=== PATIENT | male | born 1955 | race Caucasian/White ===

== ENCOUNTER 2020-08-23 19:18 | Inpatient (IN) | payer MEDICARE, OTHER ==
[~2020-08-23] VITALS: Ht 243.8 cm; Wt 76.0 kg
--- NOTE | ~2020-08-23 | EMS ---
[facility] [address] [place] [address] EMS Patient Care Report Name: DALY WRIGHT Room: [address] IN .R.#: [id number] Admission: 08/23/20 Attend Phys: Maya Bee MD Discharge: Date of : 55 Report #: [id number] THIS REPORT FOR: //name// Report Transmitted: 08/26/2020 15:42 EMS Care Summary SARAH WOODS Incident [id number] @ 08/23/2020 18:19 Incident Location [address] [place] [address] Patient DALY WRIGHT Male, 64 Years 1955 Patient Address [address] [facility] [place] [address] Patient History Amputee,Hypertension (HTN),Type 1 diabetes mellitus,Cerebral infarction, unspecified, Patient Allergies No known allergies, Chief Complaint Shortness of Breath Disposition Transported No Lights/[place] Dispatch Reason Breathing Problem Transported To [facility] Narrative [facility] 319 respond to [address] for a respiratory. 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 IFD states pt is fine. He doesnt appear to be short of breath. He is talking with us just fine. His family wants him to go to the hospital but he's not sure if he wants to go. He has been having congestion for the past 2 days. His o2 sat was 92% and his HR was 120. Pt's states he has [address] [address] EMS Patient Care Report Name: DALY WRIGHT Room: [address] IN M.R.#: [id number] Admission: 08/23/20 Attend Phys: Maya Bee MD Discharge: Date of : 55 Report #: [id number] also been stressed. His dog this morning. Son states that he was shaking short of breath and not able to steer his motorized wheel chair. Pt states he hasn't felt like he's had a fever. He's not really feeling short of breath. He would like to go to [facility]. I explain that [facility] is on high volume, they are very busy. Is there another hospital that he would like to go to? Pt and family decide on [facility]. He doesn't have a pacemaker. He has a history of an arrythmia. No other complaints. Found 64yo male sitting in motorized wheel chair in living room. Airway is open. Breathing is non labored. Skin is warm, pink, and dry. Pt is A&Ox4. Pt has audible wet lung sounds and a productive cough. HEENT unremarkable. Equal chest rise and fall. Breath sounds clear in right upper and lower lobe. Rhonchi in left upper and lower lobe. ABD unremarkable. Pelvis intact. Pt has left sided weakness. Pt has bilateral AKAs. Once in ambulance pt became tachypneic without distress. Improved by being placed on 02 at 3lpm. No other visible abnornmalities found at this time. Assessed pt and spoke with pt and family. With help from IFD transferred pt from motorized wheel chair to stair chair with brandi. Secured pt to stair chair with 3 straps. IFD carried pt down [address] to stretcher. Transferred pt from stair chair to stretcher by brandi. Secured pt to stretcher with 5 straps and 2 rails. Obtained v/s, pulse ox reading, 4 and 12 lead ekg. Placed pt on o2 3lpm by nc. Started 20g iv ns lock in right ac. Checked d-stick. Continued to monitor pt and called report during transport. Transferred pt from stretcher to bed by draw sheet. Turned over pt care to [facility] RM 3 medical staff. Initial Vitals @18:43SpO2: 89, @18:44SpO2: 87, @18:51SpO2: 95, @19:02SpO2: 100, @18:47 @18:44P: 69,R: 36,BP: 159/91, @19:02P: 88,R: 24,BP: 129/90, @19:13P: 132,R: 24,BP: 146/89, @18:44GCS: 15, @19:02GCS: 15, @19:13GCS: 15, @18:28 @18:51Glucose: 195, Assessments @18:28MENTAL:SKIN:HEENT:LUNG SOUNDS:ABDOMEN:PELVIS//GI:EXTREMITIES:PULSE:NEURO: Impression Acute Respiratory Distress (Dyspnea) [place] [address] EMS Patient Care Report Name: WRIGHTDALY MCKEON Lorenzo Room: [address] IN M..#: [id number] Admission: 08/23/20 Attend Phys: Maya Bee MD Discharge: Date of : 55 Report #: [id number] Procedures @18:48Other - Medication - 3.000 Liters per Minute (l/min [fluid]) - Nasal CannulaResponse: Improved@18:50 cc () Site: Antecubital-RightResponse: UnchangedSucceeded@18:4712-Lead ECGResponse: UnchangedSucceeded Timeline 18:19,Call Received 18:19,Dispatch Notified 18:19,Psap Call 18:19,Dispatched 18:19,En Route 18:26,On Scene 18:28,At Patient 18:28,BP: / M,PULSE: ,RR: R,SPO2: Ox,ETCO2: ,BG: ,PAIN: ,GCS: , 18:43,BP: / M,PULSE: ,RR: R,SPO2: 89 Ox,ETCO2: ,BG: ,PAIN: ,GCS: , 18:44,BP: / M,PULSE: ,RR: R,SPO2: 87 Ox,ETCO2: ,BG: ,PAIN: ,GCS: , 18:44,BP: 159/91 M,PULSE: 69,RR: 36 R,SPO2: Ox,ETCO2: ,BG: ,PAIN: ,GCS: , 18:44,BP: / M,PULSE: ,RR: R,SPO2: Ox,ETCO2: ,BG: ,PAIN: ,GCS: 15, 18:47,12-Lead ECG,Response: UnchangedSucceeded, 18:47,BP: / M,PULSE: ,RR: R,SPO2: Ox,ETCO2: ,BG: ,PAIN: ,GCS: , 18:48,Other - Medication - 3.000 Liters per Minute (l/min [fluid]) - Nasal Cannula,Response: Improved 18:50, cc Site: Antecubital-Right,Response: UnchangedSucceeded, 18:51,BP: / M,PULSE: ,RR: R,SPO2: 95 Ox,ETCO2: ,BG: ,PAIN: ,GCS: , 18:51,BP: / M,PULSE: ,RR: R,SPO2: Ox,ETCO2: ,B,PAIN: ,GCS: , 18:52,Depart Scene 19:02,BP: / M,PULSE: ,RR: R,SPO2: 100 Ox,ETCO2: ,BG: ,PAIN: ,GCS: , 19:02,BP: 129/90 M,PULSE: 88,RR: 24 R,SPO2: Ox,ETCO2: ,BG: ,PAIN: ,GCS: , 19:02,BP: / M,PULSE: ,RR: R,SPO2: Ox,ETCO2: ,BG: ,PAIN: ,GCS: 15, 19:12,At Destination 19:13,BP: 146/89 M,PULSE: 132,RR: 24 R,SPO2: Ox,ETCO2: ,BG: ,PAIN: ,GCS: , 19:13,BP: / M,PULSE: ,RR: R,SPO2: Ox,ETCO2: ,BG: ,PAIN: ,GCS: 15, 19:28,Call Closed Disclaimer v1.1 Copyright 2020 [employer] This EMS Care Summary contains data elements from the applicable legal record (which may be displayed differently). It is designed to provide pertinent information for the following purposes: continuity of care, clinical quality, and state data reporting. The complete legal record is available to ED staff and administrators of the receiving hospital in [employer]'s Patient Tracker. All data is provided "as is."
[~2020-08-23 19:18] MED LIST: CYMBALTA30 MG PO; GLUCOPHAGE XR750 MG PO; LIORESAL 10 MG10 MG PO; LISINOPRIL2.5 MG PO; NEURONTIN 300M300 M2 PO; PRADAXA150 MG PO; ZOCOR20 MG PO; ZOFRAN ODT4 MG PO
[2020-08-23 19:19] VITALS: BP 134/86
[2020-08-23] MEDS ORDERED: AMBIEN5 MG PO (19:57)
[2020-08-23] MEDS ORDERED: NYSTATIN15 G2 TOP (19:57)
[2020-08-23 20:13] LABS: HEMATOCRIT 34.9 % (42.0-52.0); HEMOGLOBIN 11.6 gm/dL (14.0-18.0); MCH 26.7 pg (26.0-34.0); MCHC 33.2 g/dL (28.0-37.0); MCV 80.7 fL (80.0-100.0); MPV 8.3 fl. (7.2-11.1); NUCLEATED RBCS 0 /100WBC; PLATELET COUNT* 206 thou/uL (150-400); RBC 4.33 mil/uL (4.50-6.00); RDW-CV 16.6 % (10.5-14.5); WBC 9.7 thou/uL (4.0-11.0)
[2020-08-23 20:14] LABS: BE -6.5 mmol/L (-2 to +3); PCO2 27.3 mmHg (35.0-45.0); PO2 72.4 mmHg (75.0-100.0); pH 7.408 (7.340-7.450)
[2020-08-23 20:17] LABS: CALCIUM 8.2 mg/dL (8.5-10.1); CREATININE 1.5 mg/dL (0.6-1.3); POTASSIUM 4.8 mmol/L (3.5-5.1)
[2020-08-23 20:21] LABS: ALBUMIN 2.8 g/dL (3.4-5.0); MAGNESIUM 1.5 mg/dL (1.8-2.4); TOTAL BILIRUBIN 0.9 mg/dL (<0.1-1.0); TOTAL PROTEIN 7.7 g/dL (6.4-8.2)
[2020-08-23 20:22] LABS: APTT 53.4 Seconds (25.0-31.3); INR 1.3; PROTIME 13.4 Seconds (9.20-11.50)
[2020-08-23 20:37] LABS: ABSOLUTE LYMPHOCYTES 0.3 thou/uL (0.8-5.3); ABSOLUTE MONOCYTES 0.7 thou/uL (0.0-1.2); ABSOLUTE NEUTROPHILS 8.7 thou/uL (1.6-8.1); PLATELET ESTIMATE ADEQUATE
[2020-08-23 23:54] VITALS: BP 136/67
[2020-08-24 00:42] VITALS: BP 118/66
[2020-08-24 02:29] LABS: HEMATOCRIT 36.4 % (42.0-52.0); HEMOGLOBIN 11.8 gm/dL (14.0-18.0); MCH 26.5 pg (26.0-34.0); MCHC 32.5 g/dL (28.0-37.0); MCV 81.4 fL (80.0-100.0); MPV 8.4 fl. (7.2-11.1); RBC 4.47 mil/uL (4.50-6.00); RDW-CV 16.4 % (10.5-14.5); WBC 7.4 thou/uL (4.0-11.0)
[2020-08-24 02:50] LABS: CALCIUM 8.3 mg/dL (8.5-10.1); CREATININE 1.5 mg/dL (0.6-1.3); POTASSIUM 4.5 mmol/L (3.5-5.1)
[2020-08-24 05:07] VITALS: BP 128/86
[2020-08-24 08:00] VITALS: BP 127/76
[2020-08-24 12:00] VITALS: BP 127/83
--- NOTE | 2020-08-24 13:53 | EKG ---
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 : 1955 Requested By: Mita Talley Order Number: [id number] MD: Jose Miguel Carter Measurements Intervals [place] Rate: 147 P: VT: QRS: -28 QRSD: 113 T: 122 QT: 279 QTc: 437 Interpretive Statements Atrial fibrillation Anterior infarct, old Repolarization abnormality, prob rate related Minimal ST elevation, inferior leads Compared to ECG 01/26/2017 16:51:39 Early repolarization now present ST (T wave) deviation now present Intraventricular conduction delay no longer present Myocardial infarct finding still present Electronically Signed On 08-24-2020 13:52:47 DUPLIGRAPH OPERATOR by Jose Miguel Carter [email or web address] <ELECTRONICALLY SIGNED> By: Yuan Carter MD, [facility] 08/24/20 1352 23 23 Yuan Carter MD, [facility] /EPI
--- NOTE | 2020-08-24 14:25 | NUR ---
CM SPOKE TO THE PT VIA THE HOSPITAL ROOOM PHONE TO DISCUSS CM ASSESSMENT THE PT IS COVID 19 POSITIVE AND CURRENTLY UNDER ENHANCED PRECAUTIONS. PT A&O. PT USES A POWERCHAIR FOR MOBILITY AND A ESTEBAN LIFT FOR TRANSFERS. PT RESIDES AT HOME WITH SPOUSE AND SON AND THEY ASSIST PT WITH TRANSFERS AND ADL'S, AND ALSO DO ALL COOKING AND PULPWOOD CONTRACTOR. PT USES A CPAP AT REST. PT HAS PAST HX OF HH AND SNF 'MANY YEARS AGO'. PT CURRENTLY ON 1.5L O2, BUT DID NOT USES HOME OXYGEN PRIOR TO ADMIT. CM WILL REMAIN AVAILABLE TO ASSIST AND FOLLOW NEEDED.
[2020-08-24 14:49] LABS: % SATURATION 6 % (20-39); IRON 13 ug/dL (50-175)
[2020-08-24 16:00] VITALS: BP 147/72
[2020-08-24 20:00] VITALS: BP 117/72
[2020-08-24 22:16] LABS: URINE BILIRUBIN NEGATIVE (Negative); URINE BLOOD TRACE (Negative); URINE COLOR YELLOW; URINE GLUCOSE-RANDOM 2+ (Negative); URINE KETONES TRACE (Negative); URINE LEUKOCYTES NEGATIVE (Negative); URINE NITRITE NEGATIVE (Negative); URINE PROTEIN 2+ (Negative); URINE SPECIFIC GRAVITY >= 1.030 (1.005-1.030); URINE UROBILINOGEN 0.2 E.U./dl (0.2-1.0)
[2020-08-24 22:18] LABS: URINE CLARITY HAZY
[2020-08-24 22:36] LABS: BACTERIA None Seen /HPF (None Seen); CASTS None Seen /LPF (None Seen); CRYSTALS None Seen /LPF (None Seen); SQUAMOUS 0-3 Few /LPF (0-3); URINE RBC 0-2 Rare /HPF (0-2); URINE WBC None Seen /HPF (0-5)
[2020-08-25] VITALS (10 sets, daily range): BP systolic 109–161; BP diastolic 64–93
[2020-08-25 01:24] LABS: CALCIUM 8.6 mg/dL (8.5-10.1); CREATININE 1.6 mg/dL (0.6-1.3); MAGNESIUM 1.8 mg/dL (1.8-2.4); POTASSIUM 4.5 mmol/L (3.5-5.1)
--- NOTE | 2020-08-25 12:42 | CON ---
[address] [address] CONSULTATION Name: DALY WRIGHT Lorenzo Room: [address] IN M.R.#: [id number] Admission: 08/23/20 Attend Phys: Maya Bee MD Discharge: Date of : 55 Report #: [id number] THIS REPORT FOR: cc: Tushar Valencia James V. DO ~ Yuan Carter MD [facility] CARDIOLOGY CONSULTATION HISTORY OF PRESENT ILLNESS: I was asked by Dr. Bee to see this 64-year-old white male in cardiology consultation for evaluation and treatment of COVID-19 pneumonia that is of acute onset. He has a mild elevation of troponin, chronic atrial fibrillation, probable mild congestive heart failure, essential hypertension, hypercholesterolemia, left bundle branch block, chronic kidney disease and COUMADIN ALLERGY WITH SO CALLED COUMADIN NECROSIS, this resulted in bilateral lower extremity amputations. His mild CHF is based on his chest x-ray, plus a BNP of 2888. This man presented following an episode of chills and malaise and shortness of breath. He presented yesterday. He was found to have on his chest x-ray, cardiomegaly, although it was not done in the ER and was on AP film. There were bilateral diffuse hazy interstitial pulmonary opacities that were felt to possibly represent congestive heart failure with primary pulmonary edema, although diffuse interstitial pneumonitis was also a consideration. His COVID test was positive and he is felt to have COVID pneumonia. He does have history of chronic atrial fibrillation. He has not been on anticoagulation because of his anticoagulation with Coumadin experience resulting in his lower extremity amputations. I believe he has been on Pradaxa however. I believe he has been taking 150 mg b.i.d. PAST MEDICAL HISTORY: Essentially as described above. Additionally, he has a history of CVA x 2. HOME MEDICATIONS: Have included baclofen 20 mg at bedtime, Pradaxa 150 mg b.i.d., Cymbalta 30 mg daily, gabapentin 300 mg b.i.d., lisinopril 5 mg daily, metformin 850 mg b.i.d. apparently for non-insulin dependent diabetes mellitus, nystatin powder p.r.n., simvastatin 20 mg daily at bedtime and Ambien 5 mg at bedtime p.r.n. REVIEW OF SYSTEMS: Unremarkable except as per the history of present illness and past medical history. SOCIAL HISTORY: Does not smoke, drink or use illegal drugs. FAMILY HISTORY: Unremarkable. PHYSICAL EXAMINATION: GENERAL: He presents as well-developed, well-nourished [place] [address] CONSULTATION Name: DALY WRIGHT Room: [address] IN ..#: [id number] Admission: 08/23/20 Attend Phys: Maya Bee MD Discharge: Date of : 55 Report #: [id number] lower extremity amputee. He had a pulse of 105. It was irregularly irregular. Blood pressure is 147/71, respirations 18 and regular, temperature is 98.5. HEENT: His head was atraumatic. Eyes clear. NECK: Supple. There is no jugular venous distention or hepatojugular reflux. Thyroid is not enlarged. There is no adenopathy. SKIN: Warm and dry. Mucous membranes are moist. LUNGS: Clear to auscultation and percussion. HEART: Revealed normal first and second heart sound. There is no S4. There is no S3. There are no murmurs, rubs, thrills, heaves or gallops. PMI is nondisplaced. The rhythm is irregularly irregular and rate is approximately 100. ABDOMEN: Soft, flat and nontender. No palpable masses, no organomegaly. EXTREMITIES: Revealed bilateral lower extremity amputations. IMPRESSION: 1. COVID-19 pneumonia with acute respiratory failure. 2. Mildly elevated troponin. Note, his troponins were initially 0.11 and 0.18 and 0.13, then 0.17. This is in the context of a creatinine of 1.5 and mild chronic kidney disease. 3. Igz-utelvpj-shnjundkh diabetes mellitus. 4. Chronic atrial fibrillation. 5. Mild congestive heart failure of uncertain type. 6. Essential hypertension. 7. Hypercholesterolemia. 8. Left bundle-branch block. 9. Chronic kidney disease. 10. COUMADIN ALLERGY WITH COUMADIN NECROSIS. Note that his EKG when he was admitted showed left bundle branch block and there was atrial fibrillation with a rapid ventricular response. RECOMMENDATION: I would check an echo, control his heart rate with diltiazem and anticoagulate him with Pradaxa. Thank you very much for asking me to see the patient. If there are any questions, please feel free to contact me. <ELECTRONICALLY SIGNED> By: Yuan Carter MD, FACC 08/25/20 1242 1325 [id number]. Jose Miguel Carter MD, FACC /nt
[2020-08-25 12:56] LABS: ABSOLUTE BASOPHILS 0.1 thou/uL (0.0-0.2); ABSOLUTE LYMPHOCYTES 0.3 thou/uL (0.8-5.3); ABSOLUTE MONOCYTES 0.7 thou/uL (0.0-1.2); ABSOLUTE NEUTROPHILS 10.4 thou/uL (1.6-8.1); BASOPHILS 0.6 %; BE -2.8 mmol/L (-2 to +3); HEMATOCRIT 36.4 % (42.0-52.0); HEMOGLOBIN 11.8 gm/dL (14.0-18.0); LYMPHOCYTES 2.6 %; MCH 26.6 pg (26.0-34.0); MCHC 32.3 g/dL (28.0-37.0); MCV 82.1 fL (80.0-100.0); MONOCYTES 6.5 %; MPV 8.2 fl. (7.2-11.1); NUCLEATED RBCS 0 /100WBC; PO2 VENOUS 26.1 mmHg (35.0-45.0); POLYS 90.3 %; RBC 4.44 mil/uL (4.50-6.00); RDW-CV 16.3 % (10.5-14.5); WBC 11.5 thou/uL (4.0-11.0)
[2020-08-25 13:11] LABS: PLATELET COUNT* 278 thou/uL (150-400)
[2020-08-25 13:15] LABS: ALBUMIN 3.1 g/dL (3.4-5.0); CALCIUM 8.9 mg/dL (8.5-10.1); CREATININE 1.9 mg/dL (0.6-1.3); POTASSIUM 3.8 mmol/L (3.5-5.1); TOTAL BILIRUBIN 0.9 mg/dL (<0.1-1.0); TOTAL PROTEIN 8.2 g/dL (6.4-8.2)
[2020-08-25 17:14] LABS: BE 0.6 mmol/L (-2 to +3); PCO2 VENOUS 36.8 mmHg (41.0-51.0)
--- NOTE | 2020-08-25 19:13 | NUR ---
ASSESSMENT DOCUMANTED. MEDS GIVEN PER E-OCT. NO REPORTS OF PAIN. PT FOUND TO BE TACHYPNEIC WITH HR RUNNING UP TO 180'S, DRS NOTIFIED, ORDERS RECIEVED. PT STARTED ON CARDIZEM DRIP AND PLACED ON BIPAP. PT VOIDING PER E-OCT. ISOLATION MAINTAINED. FAMILY UPDATED ON PLAN OF CARE. PT RESTING COMFORTABLY AT END OF SHIFT.
[2020-08-25 23:06] LABS: IgA 457 mg/dL (61-437); IgG 1695 mg/dL (603-1613); IgM 64 mg/dL (20-172)
[2020-08-26] VITALS: BP 116/70
[2020-08-26 04:45] VITALS: BP 120/72
[2020-08-26 08:00] VITALS: BP 168/70
--- NOTE | 2020-08-26 10:03 | EKG ---
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: [place] : 1955 Requested By: Mita Talley Order Number: [id number] Juwan MD: Jose Iraheta Measurements Intervals [place] Rate: 98 P: ME: QRS: -39 QRSD: 121 T: 112 QT: 344 QTc: 440 Interpretive Statements Atrial fibrillation Left bundle branch block Baseline wander in lead(s) V5 Compared to ECG 08/23/2020 19:24:46 Left bundle-branch block persists Early repolarization no longer present Electronically Signed On 08-26-2020 10:03:04 DOG POUND ATTENDANT by Jose Iraheta [email or web address] <ELECTRONICALLY SIGNED> By: Jose Iraheta MD, FACC 08/26/20 1003 2235 2235 Jose Iraheta MD, FAC /EPI
--- NOTE | 2020-08-26 10:03 | EKG ---
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[place] : 1955 Requested By: Mita Talley Order Number: [id number] Juwan MD: Jose Iraheta Measurements Intervals [place] Rate: 111 P: [place]: QRS: -42 QRSD: 123 T: 121 QT: 343 QTc: 466 Interpretive Statements Atrial fibrillation Left bundle branch block Compared to ECG 08/23/2020 22:35:05 No significant changes Electronically Signed On 08-26-2020 10:03:12 BEATER MACHINE OPERATOR by Jose Iraheta [email or web address] <ELECTRONICALLY SIGNED> By: Jose Iraheta MD, [facility] 08/26/20 1003 34 34 Jose Iraheta MD, [facility] /EPI
[2020-08-26 11:05] LABS: HEMATOCRIT 31.5 % (42.0-52.0); HEMOGLOBIN 10.3 gm/dL (14.0-18.0); MCH 26.2 pg (26.0-34.0); MCHC 32.7 g/dL (28.0-37.0); MCV 80.2 fL (80.0-100.0); MPV 7.8 fl. (7.2-11.1); NUCLEATED RBCS 0 /100WBC; PLATELET COUNT* 281 thou/uL (150-400); RBC 3.94 mil/uL (4.50-6.00); RDW-CV 16.8 % (10.5-14.5); WBC 9.8 thou/uL (4.0-11.0)
[2020-08-26 11:21] LABS: ALBUMIN 2.6 g/dL (3.4-5.0); CALCIUM 7.8 mg/dL (8.5-10.1); CREATININE 1.7 mg/dL (0.6-1.3); MAGNESIUM 2.1 mg/dL (1.8-2.4); POTASSIUM 3.8 mmol/L (3.5-5.1); TOTAL BILIRUBIN 1.1 mg/dL (<0.1-1.0); TOTAL PROTEIN 7.5 g/dL (6.4-8.2)
[2020-08-26 11:30] LABS: ABSOLUTE LYMPHOCYTES 0.9 thou/uL (0.8-5.3); ABSOLUTE MONOCYTES 0.5 thou/uL (0.0-1.2); ABSOLUTE NEUTROPHILS 8.4 thou/uL (1.6-8.1); PLATELET ESTIMATE ADEQUATE
[2020-08-26 12:00] VITALS: BP 165/73
--- NOTE | 2020-08-26 13:44 | 2DMMODE ---
[place] [address] 2 D/M-MODE ECHOCARDIOGRAM Name: WRIGHTDALY Room: [address] IN .R.#: [id number] Admission: 08/23/20 Attend Phys: Maya Bee MD Discharge: Date of : 55 Date of Service: 08/26/20 1344 Report #: [id number] THIS REPORT FOR: cc: Tushar Valencia James V. DO Holkins,Jose Brady MD [facility] ~ APPROVED REPORT Study performed: 08/26/2020 10:53:30 EXAM: Comprehensive 2D, Doppler, and color-flow Echocardiogram Patient Location: In-Patient Room #: [facility] Status: routine BSA: 1.50 HR: 85 bpm BP: 120/72 mmHg Rhythm: Atrial Fibrillation Other Information Study Quality: Good Indications Atrial Fibrillation 2D Dimensions IVSd: 17.23 (7-11mm) LVOT Diam: 21.81 (18-24mm) LVDd: 38.85 mm PWd: 13.61 (7-11mm) Ascending Ao: 35.99 (22-36mm) LVDs: 25.01 (25-40mm) Aortic Root: 36.50 mm Aortic Valve AoV Peak Wan.: 2.06 m/s AO Peak Gr.: 16.97 mmHg LVOT Max P.12 mmHg AO Mean Gr.: 10.17 mmHg LVOT Mean P.16 mmHg LVOT Max V: 1.01 m/s AO V2 VTI: 37.40 cm LVOT Mean V: 0.68 m/s KYLIE (VTI): 1.40 cm2 LVOT V1 VTI: 14.06 cm Mitral Valve MV Mean Gr.: 6.75 [place] [address] 2 D/M-MODE ECHOCARDIOGRAM Name: DALY WRIGHT Room: [address] IN .R.#: [id number] Admission: 08/23/20 Attend Phys: Maya Bee MD Discharge: Date of : 55 Date of Service: 08/26/20 1344 Report #: [id number] PV Peak Wan.: 1.25 m/s PV Peak Gr.: 6.22 mmHg Left Ventricle The left ventricle is normal size. There is normal LV segmental wall motion. Moderate concentric left ventricular hypertrophy. Left ventricular systolic function is normal. The left ventricular ejection fraction is within the normal range. LVEF is 65%. This study is not technically sufficient to allow evaluation of the LV diastolic function due to atrial fibrillation. Right Ventricle The right ventricle is normal size. The right ventricular systolic function is normal. Atria The left atrium size is normal. The right atrium size is normal. Aortic Valve Moderate aortic valve sclerosis. Mild aortic regurgitation. Mild aortic stenosis. Mitral Valve Moderate mitral annular calcification. There is no mitral valve regurgitation noted. No evidence of mitral valve stenosis. Tricuspid Valve The tricuspid valve is normal in structure. Unable to assess PA pressure. Trace tricuspid regurgitation. Pulmonic Valve The pulmonary valve is normal in structure. There is no pulmonic valvular regurgitation. Great Vessels The aortic root is normal in size. IVC is normal in size and collapses >50% with inspiration. Pericardium There is no pericardial effusion. <Conclusion> The left ventricle is normal size. Moderate concentric left ventricular hypertrophy. Left ventricular systolic function is normal. The left ventricular ejection [place] [address] 2 D/M-MODE ECHOCARDIOGRAM Name: DALY WRIGHT Room: [address] IN [facility]#: [id number] Admission: 08/23/20 Attend Phys: Maya Bee MD Discharge: Date of : 55 Date of Service: 08/26/20 1344 Report #: [id number]. LVEF is 65%. This study is not technically sufficient to allow evaluation of the LV diastolic function due to atrial fibrillation. The right ventricle is normal size. The left atrium size is normal. Moderate aortic valve sclerosis. Mild aortic regurgitation. Mild aortic stenosis. Moderate mitral annular calcification. There is no mitral valve regurgitation noted. No evidence of mitral valve stenosis. The tricuspid valve is normal in structure. IVC is normal in size and collapses >50% with inspiration. There is no pericardial effusion. There is normal LV segmental wall motion. <ELECTRONICALLY SIGNED> By: Jose Iraheta MD, FACC 08/26/20 1344 1344 1344 Jose Iraheta MD, FACC /INF
--- NOTE | 2020-08-26 15:00 | NUR ---
SOME BETTER THIS AFTERNOON. ABLE TO BE OFF BIPAP AND ON 6L/HFC O2. CHANGING TO PO CARDIZEM AND DIG. REMAINS ON IV LASIX AND REMDESIVIR. CM WILL FOLLOW.
[2020-08-26 16:00] VITALS: BP 138/82
--- NOTE | 2020-08-26 19:41 | NUR ---
ASSUMED CARE OF PATIENT THIS AM AT 0730. PATIENT IS ALERT AND ORIENTED X 4. HE DENIES PAIN AND DISCOMFORT. TELE SHOWS A FIB. DR IN TO ROUND AND PATIENT IS TO START PO CARDIZEM. PATIENT REPOSITIONED Q 2 HR. MEDICATIONS GIVEN PER ORDER. PATIENT WAS ON BIPAP THIS AM. O2 CHANGED TO NC 5 LITERS WHILE AWAKE. PATIENT HAS BEEN INCONTINENT OF URINE TODAY. ASSISTED WITH ADLS THROUGHOUT THE DAY. NO FALLS OR INJURY.
[2020-08-26 20:30] VITALS: BP 130/68
[2020-08-27 00:35] VITALS: BP 113/65
--- NOTE | 2020-08-27 05:09 | NUR ---
PT LYING IN BED AT TIME OF ASSESSMENT, HE IS AO X4 WITH SHORT,BLUNT ANSWERS. PT VSS. PT CARDIZEM GTT WAS DISCONTINUED DUE TO BP AND HR BEING WNL AND HAS STARTED PO MEDS. HE IS CURRENTLY STILL AFIB IN 70-80s WITH NO COMPLAINT OF PAIN OR SOA. HE IS CURRENTLY ON 5.5 L NC AND BIPAP AT HS. BLOOD SUGAR THIS PM WAS 409 AND INSULING GIVEN TO CORRECT THIS PER OCT. PT RECEIVED LASIX AT 2100 AND APPROX 1400 mL URINE OUTPUT. PT TURNED Q 2HR, WCLR,WCTM
[2020-08-27 05:25] LABS: PCO2 32.8 mmHg (35.0-45.0); PO2 100.4 mmHg (75.0-100.0); pH 7.497 (7.340-7.450)
[2020-08-27 05:53] VITALS: BP 134/77
[2020-08-27 06:46] LABS: HEMATOCRIT 35.5 % (42.0-52.0); HEMOGLOBIN 11.6 gm/dL (14.0-18.0); MCH 26.3 pg (26.0-34.0); MCHC 32.6 g/dL (28.0-37.0); MCV 80.7 fL (80.0-100.0); MPV 8.3 fl. (7.2-11.1); RBC 4.39 mil/uL (4.50-6.00); WBC 5.2 thou/uL (4.0-11.0)
[2020-08-27 07:06] LABS: ALBUMIN 2.5 g/dL (3.4-5.0); CALCIUM 8.5 mg/dL (8.5-10.1); CREATININE 1.7 mg/dL (0.6-1.3); MAGNESIUM 2.3 mg/dL (1.8-2.4); POTASSIUM 3.4 mmol/L (3.5-5.1); TOTAL BILIRUBIN 1.1 mg/dL (<0.1-1.0); TOTAL PROTEIN 7.7 g/dL (6.4-8.2)
[2020-08-27 08:30] VITALS: BP 160/81
[2020-08-27 12:28] VITALS: BP 163/63
--- NOTE | 2020-08-27 16:00 | NUR ---
REMAINS ON 2L/O2/NC. NO O2 AT HOME. CXR TODAY SHOWS NO CHANGE. IV SOLUMEDROL DECREASED TO BID. REAMINS ON IV CEFEPIME,REMDESIVIR. STARTED ON PO DIG. CM WILL FOLLOW.
[2020-08-27 17:47] VITALS: BP 141/78
--- NOTE | 2020-08-27 18:53 | NUR ---
ASSESSMENT DOCUMENTED. MEDS GIVEN PER E-MAR. IV PATENT. NO REPORTS OF PAIN THIS SHIFT. IV PATENT. O2 DECREASED TO 2L NC THIS SHIFT. ISOLATION MAINTAINED.
[2020-08-27 20:00] VITALS: BP 158/68
[2020-08-28] VITALS: BP 126/61
--- NOTE | 2020-08-28 03:53 | NUR ---
PT AO X4 LYING IN BED AT TIME OF ASSESSMENT. HE IS CURRENTLY ON 4L NC SATTING 100 PERCENT, TITRATED DOWN TO 2L AND SATS HAVE MAINTAINED GREATER THAN 90 PERCENT. PT STILL HAS A NONPRODUCTIVE COUGH THAT IS INFREQUENT, LUNGS ARE CTA. VSS.PT IS EXCITED AT THE PROSPECT OF GOING HOME TODAY. TM
[2020-08-28 04:00] VITALS: BP 129/81
[2020-08-28 04:30] VITALS: BP 148/65
[2020-08-28 06:07] LABS: CALCIUM 8.3 mg/dL (8.5-10.1); CREATININE 1.3 mg/dL (0.6-1.3)
[2020-08-28 07:40] VITALS: BP 160/69
[2020-08-28 12:00] VITALS: BP 135/85
[2020-08-28] MEDS ORDERED: PNV 29-1 TABLE1 EACH PO (12:00)
[2020-08-28] MEDS ORDERED: CEFDINIR300 MG PO (12:00)
[2020-08-28] MEDS ORDERED: PREDNISONE 10 M10 MG PO (12:00)
[2020-08-28] MEDS ORDERED: TOPROL XL50 MG PO (12:00)
[2020-08-28 15:09] LABS: GLOBULIN TOTAL 4.2 g/dL (2.2-3.9); M-SPIKE Not Observed g/dL (Not Observed)
--- NOTE | 2020-08-28 17:53 | NUR ---
DISCUSSED IN PRIME TIME ROUNDS THIS AM. POSSIBILITY OF DISCHARGE TOMORROW TO HOME. RESTING AND EXERCISE SATS ORDERED. DOESN'T USE O2 AT HOME. CURRENTLY ON 2L/NC.
--- NOTE | 2020-08-28 19:51 | NUR ---
ASSESSMENT DOCUMENTED. MEDS GIVEN PER E-MAR. IV PATENT. NO REPORTS OF PAIN THIS SHIFT. PT ON 2L NC PT DESATS TO LOW 80% ON ROOM AIR WHEN NAPPING. FALL PRECAUTIONS IN PLACE. ISOLATION MAINTAINED.
[2020-08-28 21:00] VITALS: BP 150/84
[2020-08-29] VITALS (7 sets, daily range): BP systolic 109–155; BP diastolic 56–81
--- NOTE | 2020-08-29 04:34 | NUR ---
PT AO X4 LYING IN BED AT TIME OF ASSESSMENT, PT WAS TO BE DISCHARGED YESTERDAY BUT SATS KEPT FALLING INTO THE 80s WHEN PT WOULD FALL ASLEEP. PT HAD HOME CPAP BROUGHT IN WITH OVERNIGH OXIMETRY TO BE DONE TO EVALUATE HIM FOR HOME OXYGEN USE UPON DISCHARGE. PT LUNGS ARE CLEAR WITH NONPRODUCTIVE COUGH. HE IS AFEBRILE AND READY TO GO HOME. VSS, BLOOD SUGAR REQUIRING SOME COVERAGE FOR STEROID USE. WCTM
--- NOTE | 2020-08-29 17:00 | NUR ---
ATTEMPTED TO CONTACT EARLIER TO SEE WHAT PT.HAS USED IN THE PAST. LEFT VM. CALLED PT.ON CELL. HE DID NOT ANSWER PHONE. HE IS TO DISCHARGE TODAY WITH HOME HEALTH. FAXED REFERRAL AND DISCHARGE ORDERS/MEDS TO [facility] [phone]. PER NURSING SON IS COMING TO PICK PT.UP IN HIS WC VAN.PT.DID NOT REQUIRE O2. 02 SAT WAS 96% AT REST. PT.DOES NOT AMBULATE.
--- NOTE | 2020-08-29 19:57 | NUR ---
ASSESSMENT DOCUMENTED. MEDS GIVEN PER E-MAR. IV PATENT. DC ORDERS RECIEVED. IV REMOVED. PT LEFT VIA WC WITH FAMILY
--- NOTE | 2020-08-30 19:27 | NUR ---
NOTIFIED BY [facility] THAT PT.S INS. WAS OON FOR THEIR HH. OUR FACE SHEET SAYS MEDICARE. THEY SAID WHEN THEY RAN IT, IT WAS A BLUE CROSS PRODUCT. CM CALLED [facility]. SPOKE WITH JAYDA. SHE LOOKED PT.UP THROUGH HIS MEDICARE NUMBER. SHE SAID IT APPEARED HE HAS AETNA. THEY CANNOT SEE HIM OVER THE WEEKEND DUE TO THEIR COVID TEAM DOES NOT WORK ON WEEKENDS. SHE SAID IF I COULD FIND OUT POLICY NAME AND NUMBER AND FAX WITH REFERRAL THEY COULD RUN INS. OVER WEEKEND. CM CALLED SON, RACHEL. HE SAID PT.WAS SLEEPING BUT HE WOULD HAVE HIM CALL CM WHEN HE WOKE UP. GAVE HIM PHONE NUMBER. HE SAID DAD WAS DOING GOOD. O2 SATS ARE GOOD. HE SAID WHEN DISCHARGED THEY DID NOT GET HIS NEW PRESCRIPTIONS HE WAS SUPPOSED TO HAVE. HE SAID THEY GOT AHOLD OF TODAY AND THEY WERE CALLED IN TO HIS PHARMACY TODAY.
== END 2020-08-29 17:30 | disposition home health service (06) | DRG 871 ==
LOC: M.ERS 19:18 → M.ORTHSURG 22:28 → M.TBA-ER 22:28 → M.ORTHSURG 08-24 00:19
PROVIDERS: Internal Medicine; Personal Emergency Response Attendant; Registered Nurse; ADMIT Family Medicine; ATTEND Family Medicine
PROC: 5A09357 Assistance with Respiratory Ventilation, Less than 24 Consecutive Hours, Continuous Positive Airway Pressure (ICD-10-PCS; principal; 2020-08-25)
PROC: XW033E5 Introduction of Remdesivir Anti-infective into Peripheral Vein, Percutaneous Approach, New Technology Group 5 (ICD-10-PCS; principal; 2020-08-25)
PROC: 5A0935A Assistance with Respiratory Ventilation, Less than 24 Consecutive Hours, High Flow/Velocity Cannula (ICD-10-PCS; 2020-08-26)
PROC: 05HD33Z Insertion of Infusion Device into Right Cephalic Vein, Percutaneous Approach (ICD-10-PCS; 2020-08-26)
PROC: 5A09357 Assistance with Respiratory Ventilation, Less than 24 Consecutive Hours, Continuous Positive Airway Pressure (ICD-10-PCS; 2020-08-26)
PROC: 5A09357 Assistance with Respiratory Ventilation, Less than 24 Consecutive Hours, Continuous Positive Airway Pressure (ICD-10-PCS; 2020-08-27)
PROC: 5A09357 Assistance with Respiratory Ventilation, Less than 24 Consecutive Hours, Continuous Positive Airway Pressure (ICD-10-PCS; 2020-08-28)
DX: A41.89 Other specified sepsis (principal); E43 Unspecified severe protein-calorie malnutrition; U07.1 COVID-19; J96.01 Acute respiratory failure with hypoxia; J12.82 Pneumonia due to coronavirus disease 2019; I21.4 Non-ST elevation (NSTEMI) myocardial infarction; N17.0 Acute kidney failure with tubular necrosis; I50.33 Acute on chronic diastolic (congestive) heart failure; I48.20 Chronic atrial fibrillation, unspecified; D68.59 Other primary thrombophilia; I13.0 Hypertensive heart and chronic kidney disease with heart failure and stage 1 through stage 4 chronic kidney disease, or unspecified chronic kidney disease; N18.9 Chronic kidney disease, unspecified; E11.22 Type 2 diabetes mellitus with diabetic chronic kidney disease; I44.7 Left bundle-branch block, unspecified; E78.00 Pure hypercholesterolemia, unspecified; F44.4 Conversion disorder with motor symptom or deficit; Z86.73 Personal history of transient ischemic attack (TIA), and cerebral infarction without residual deficits; Z89.612 Acquired absence of left leg above knee; Z89.611 Acquired absence of right leg above knee; Z88.8 Allergy status to other drugs, medicaments and biological substances; Z82.49 Family history of ischemic heart disease and other diseases of the circulatory system; Z79.899 Other long term (current) drug therapy